=== PATIENT | female | born 1990 | race Caucasian/White ===

== ENCOUNTER 2020-05-20 18:37 | Emergency (ER) | payer MEDICAID ==
[~2020-05-20] VITALS: Ht 160 cm; Wt 49.0 kg
[~2020-05-20 18:37] MED LIST: ACET1TAB12 PO; ALPR1TAB2 PO; CLIN150C8 PO; IBUP-1986 PO; PANT-47 PO
[2020-05-20] MEDS ORDERED: ondansetron/PF 4mg/2ml inj IV ONE (19:05)
[2020-05-20] MEDS ORDERED: ONDA4TAB6 PO ×2 (19:09→20:57)
[2020-05-20] MEDS ORDERED: ondansetron 4mg rapidly disintigrating tab PO ONE (19:10)
[2020-05-20 21:06] LABS: CLARITY,URINE CLEAR (Clear); COLOR,URINE YELLOW (Yellow); GLUCOSE, URINE NEGATIVE (Neg); KETONES,URINE 15 mg/dl (Neg); LEUKOCYTE ESTERASE ,URINE NEGATIVE (Neg); NITRITES, URINE NEGATIVE (Neg); OCCULT BLOOD,URINE TRACE-INTACT (Neg); PROTEIN,URINE TRACE mg/dl (Neg); URINE HCG NEGATIVE (NEG); UROBILINOGEN,URINE 0.2 E.U/dL (0.2-1.0)
[2020-05-20 21:15] LABS: UA COLLECTION TYPE CLN CATCH MIDSTREAM
[2020-05-20 21:16] LABS: BACTERIA,URINE FEW /HPF (Neg); SQUAMOUS EPITHELIAL CELL,UR FEW /LPF (FEW); WBC,URINE NONE SEEN /HPF (0-4)
[2020-05-20 21:21] VITALS: BP 115/81
== END 2020-05-20 21:23 | disposition home or self-care (01) ==
LOC: ER 18:38
DX: K52.89 Other specified noninfective gastroenteritis and colitis (principal); R11.2 Nausea with vomiting, unspecified; R19.7 Diarrhea, unspecified; R10.84 Generalized abdominal pain; Z20.828 Contact with and (suspected) exposure to other viral communicable diseases; F41.9 Anxiety disorder, unspecified; F32.9 Major depressive disorder, single episode, unspecified; Z98.890 Other specified postprocedural states; Z88.6 Allergy status to analgesic agent; Z79.2 Long term (current) use of antibiotics; Z79.899 Other long term (current) drug therapy
CPT/HCPCS: 36415; 81001; 81025; 87635; 99283

== ENCOUNTER 2024-08-10 08:18 | Inpatient (IN) | payer MEDICARE, MEDICAID ==
[~2024-08-10] VITALS: Ht 160 cm; Wt 54.5 kg
[~2024-08-10 08:18] MED LIST changes: +CLIN-214 PO; -CLIN150C8 PO; +ONDA4TAB6 PO
[2024-08-10 09:21] LABS: BASOPHILS % (AUTO) 0.2 % (0-1); EOSINOPHILS # (AUTO) 0.2 X10'3 (0-0.9); EOSINOPHILS % (AUTO) 1.4 % (0-6); LYMPHOCYTES # (AUTO) 0.3 X10'3 (1.1-4.8); MEAN CORPUSCULAR HEMOGLOBIN 21.4 PG (27.0-31.0); MEAN CORPUSCULAR HGB CONC 30.2 g/dL (33.0-36.5); MEAN PLATELET VOLUME 9.6 FL (7.4-10.4); MONOCYTES # (AUTO) 0.5 X10'3 (0-0.9); NEUTROPHILS # (AUTO) 9.9 X10'3 (1.8-7.7); NEUTROPHILS % (AUTO) 90.4 % (42-75); PLATELET COUNT 265 X10'3 (140-440); RED BLOOD COUNT 3.09 X10'6 (4.20-5.60); RED CELL DISTRIBUTION WIDTH 19.6 % (11.5-14.5); WHITE BLOOD COUNT 10.9 X10'3 (4.5-11.0)
[2024-08-10 09:31] LABS: HEMOGLOBIN 6.6 g/dl (12.0-16.0)
[2024-08-10 09:42] LABS: ALANINE AMINOTRANSFERASE 12 U/L (12-78); ALBUMIN 2.3 G/DL (3.4-5.0); ALBUMIN/GLOBULIN RATIO 0.6 (1.1-1.5); ALKALINE PHOSPHATASE 91 IU/L (46-116); ANION GAP 13 (8-16); ASPARTATE AMINO TRANSFERASE 36 U/L (10-37); BILIRUBIN,TOTAL 0.2 MG/DL (0.1-1.0); BLOOD UREA NITROGEN 14 MG/DL (7-18); BUN/CREATININE RATIO 26.4 (10.0-20.0); CALCIUM 8.7 MG/DL (8.5-10.1); CHLORIDE 106 MMOL/L (99-107); CREATININE 0.53 MG/DL (0.40-0.90); GLUCOSE 96 MG/DL (70-104); POTASSIUM 3.2 MMOL/L (3.5-5.1); SODIUM 139 MMOL/L (135-145); TOTAL CARBON DIOXIDE 19.6 MMOL/L (24-32); TOTAL PROTEIN 6.2 G/DL (6.4-8.2); eCRCL 124 ML/MIN; eGFR > 90 ML/MIN
[2024-08-10 09:44] LABS: BILIRUBIN,DIRECT < 0.1 MG/DL (0-0.3)
[2024-08-10] MEDS: CefTRIAXone/D5W-Rocephin 1gm 50 ML IV ONE (09:46)
[2024-08-10] MEDS: normal saline 1000ML IV soln IVB ONE (09:48)
[2024-08-10] MEDS: LidoCAINE 2% Topical Jelly 11mL syringe (UROJET) TOP ONE (10:01)
[2024-08-10 10:10] LABS: ANISOCYTOSIS 2+; HYPOCHROMASIA 2+; MICROCYTOSIS 1+; PLATELET ESTIMATE NORMAL; SCHISTOCYTES FEW; TEAR DROP CELLS FEW
[2024-08-10] MEDS: azithromycin/NS 500mg/250ml 250 ML IV ONE (10:14)
[2024-08-10 10:20] LABS: BILIRUBIN,URINE NEGATIVE (Neg); CLARITY,URINE CLEAR (Clear); COLOR,URINE YELLOW (Yellow); GLUCOSE, URINE NEGATIVE (Neg); KETONES,URINE 15 mg/dl (Neg); LEUKOCYTE ESTERASE ,URINE NEGATIVE (Neg); NITRITES, URINE NEGATIVE (Neg); OCCULT BLOOD,URINE NEGATIVE (Neg); PROTEIN,URINE 30 mg/dl (Neg); UROBILINOGEN,URINE 0.2 E.U/dL (0.2-1.0)
[2024-08-10 10:21] LABS: MAGNESIUM 2.1 MG/DL (1.5-2.4)
[2024-08-10 10:23] LABS: URINE AMPHETAMINE SCREEN NEGATIVE (Neg); URINE BARBITUATE SCREEN NEGATIVE (Neg); URINE BENZODIAZEPINES SCREEN NEGATIVE (Neg); URINE CANNABINOID SCREEN NEGATIVE (Neg); URINE COCAINE SCREEN NEGATIVE (Neg); URINE METHADONE SCREEN NEGATIVE (Neg); URINE OPIATE SCREEN NEGATIVE (Neg); URINE PHENCYCLIDINE SCREEN NEGATIVE (Neg)
[2024-08-10 10:24] LABS: UA COLLECTION TYPE FOLEY CATH
[2024-08-10 10:26] LABS: BACTERIA,URINE NONE SEEN /HPF (Neg); MUCUS STRANDS FEW /LPF (Neg); RBC,URINE NONE SEEN /HPF (0-2); SQUAMOUS EPITHELIAL CELL,UR FEW /LPF (FEW)
[2024-08-10] MEDS ORDERED: mag hydrox/Alum hydrox/simeth 30ml oral suspension PO PRN (10:40)
[2024-08-10] MEDS ORDERED: magnesium hydroxide 30ml (MOM) UD suspension PO PRN (10:40)
[2024-08-10] MEDS ORDERED: magnesium sulf-water 4G/100mL 100 ML IV PRN (10:40)
[2024-08-10] MEDS ORDERED: magnesium sulf-water 2g/50mL 50 ML IV PRN (10:40)
[2024-08-10] MEDS ORDERED: ondansetron/PF 4mg/2ml inj IV PRN (10:40)
[2024-08-10] MEDS ORDERED: potassium Cl 20 mEq SR tablet PO PRN (10:40)
[2024-08-10 11:03] LABS: TOTAL IRON BINDING CAPACITY 255 UG/DL (259-388)
[2024-08-10 11:06] LABS: % IRON SATURATION 2 % (11-46); IRON 4 UG/DL (49-151)
[2024-08-10 11:15] LABS: OCCULT BLOOD STOOL NEGATIVE (Neg)
[2024-08-10] MEDS: LORazepam 2 mg/ml vial IV ONE ×2 (11:30→20:22)
[2024-08-10] MEDS ORDERED: iohexol 300mg/ml 100ml inj. ONE (11:46)
[2024-08-10] MEDS: iron sucrose complex injection 300 MG in normal saline 250ml IV soln 250 ML IV SCH (12:24)
[2024-08-10 12:31] VITALS: BP 101/53; PULSE 127; RESP 20; TEMP 99.3
[2024-08-10 12:43] LABS: HCG SERUM QL NEGATIVE
[2024-08-10 12:45] VITALS: BP 114/61; PULSE 124; RESP 20; TEMP 99.4
[2024-08-10 13:04] VITALS: BP 104/57; PULSE 112; RESP 20; TEMP 99.4
[2024-08-10 14:00] VITALS: BP 101/55; PULSE 108; RESP 20; TEMP 99.4
[2024-08-10 17:18] LABS: HEMATOCRIT 23.9 % (35.0-45.0); HEMOGLOBIN 7.5 g/dl (12.0-16.0); MEAN CORPUSCULAR HEMOGLOBIN 23.1 PG (27.0-31.0); MEAN CORPUSCULAR HGB CONC 31.3 g/dL (33.0-36.5); MEAN CORPUSCULAR VOLUME 73.7 FL (78-98); MEAN PLATELET VOLUME 8.8 FL (7.4-10.4); PLATELET COUNT 248 X10'3 (140-440); RED BLOOD COUNT 3.24 X10'6 (4.20-5.60); RED CELL DISTRIBUTION WIDTH 20.4 % (11.5-14.5); WHITE BLOOD COUNT 9.6 X10'3 (4.5-11.0)
[2024-08-10] MEDS: sodium bicarbonate (8.4%) inj. 50 MEQ in dextrose 5%-water 1,000 ML IV SCH (19:08)
[2024-08-10] MEDS: docusate sod 100mg capsule PO SCH (20:00)
[2024-08-10] MEDS: K and/or MAG REPLACEMENT MC SCH (20:00)
[2024-08-10] MEDS ORDERED: OMEP40CA21 PO (20:02)
[2024-08-10] MEDS ORDERED: BUPR1FIL20 (20:02)
[2024-08-10] MEDS ORDERED: SUCR1TAB PO (20:02)
[2024-08-10] MEDS ORDERED: FAMO40TA86 PO (20:02)
[2024-08-10] MEDS ORDERED: NYST100069 PO (20:02)
[2024-08-10] MEDS ORDERED: ALPR1TAB2 PO (20:05)
[2024-08-10] MEDS ORDERED: PANT-47 PO (20:06)
[2024-08-10] MEDS ORDERED: ONDA-243 PO (20:06)
[2024-08-10] MEDS: potassium Cl 40MEQ/1/2NS 520ml 520 ML IV PRN (21:12)
[2024-08-10 21:20] VITALS: BP 99/50; PULSE 97; RESP 16; TEMP 98; O2SAT 89
[2024-08-11] VITALS (8 sets, daily range): BP systolic 99–192; BP diastolic 47–93; PULSE 85–103; RESP 18–27; TEMP 97.4–98.9; O2SAT 91–99
[2024-08-11] MEDS: CefTRIAXone/D5W-Rocephin 1gm 50 ML IV SCH (07:27)
[2024-08-11] MEDS: nicotine 14mg patch - 24hr TD SCH (08:00)
[2024-08-11] MEDS: azithromycin/NS 500mg/250ml 250 ML IV SCH (08:21)
[2024-08-11 09:12] LABS: BASOPHILS % (AUTO) 0.4 % (0-1); EOSINOPHILS # (AUTO) 0.1 X10'3 (0-0.9); EOSINOPHILS % (AUTO) 2.5 % (0-6); HEMATOCRIT 25.3 % (35.0-45.0); LYMPHOCYTES # (AUTO) 1.1 X10'3 (1.1-4.8); LYMPHOCYTES % (AUTO) 18.9 % (21-51); MEAN CORPUSCULAR HGB CONC 31.5 g/dL (33.0-36.5); MEAN PLATELET VOLUME 8.9 FL (7.4-10.4); MONOCYTES # (AUTO) 0.3 X10'3 (0-0.9); MONOCYTES % (AUTO) 5.2 % (2-12); NEUTROPHILS # (AUTO) 4.2 X10'3 (1.8-7.7); PLATELET COUNT 228 X10'3 (140-440); RED BLOOD COUNT 3.47 X10'6 (4.20-5.60); RED CELL DISTRIBUTION WIDTH 20.4 % (11.5-14.5); WHITE BLOOD COUNT 5.8 X10'3 (4.5-11.0)
[2024-08-11 09:45] LABS: ALANINE AMINOTRANSFERASE 12 U/L (12-78); ALBUMIN 1.9 G/DL (3.4-5.0); ALBUMIN/GLOBULIN RATIO 0.6 (1.1-1.5); ALKALINE PHOSPHATASE 72 IU/L (46-116); ANION GAP 8 (8-16); ASPARTATE AMINO TRANSFERASE 18 U/L (10-37); BILIRUBIN,TOTAL 0.1 MG/DL (0.1-1.0); BLOOD UREA NITROGEN 4 MG/DL (7-18); BUN/CREATININE RATIO 12.9 (10.0-20.0); CALCIUM 7.5 MG/DL (8.5-10.1); CHLORIDE 106 MMOL/L (99-107); CREATININE 0.31 MG/DL (0.40-0.90); GLUCOSE 90 MG/DL (70-104); MAGNESIUM 2.1 MG/DL (1.5-2.4); POTASSIUM 3.3 MMOL/L (3.5-5.1); SODIUM 137 MMOL/L (135-145); TOTAL CARBON DIOXIDE 22.8 MMOL/L (24-32); TOTAL PROTEIN 5.1 G/DL (6.4-8.2); eCRCL 212 ML/MIN; eGFR > 90 ML/MIN
[2024-08-11] MEDS ORDERED: LORazepam 1 MG tablet PO PRN (10:10)
[2024-08-11] MEDS: LORazepam 2 mg/ml vial IV PRN (10:29)
[2024-08-11] MEDS: LORazepam 2 mg/ml vial IV ONE (14:24)
[2024-08-12 05:30] LABS: EOSINOPHILS # (AUTO) 0.1 X10'3 (0-0.9); WHITE BLOOD COUNT 4.8 X10'3 (4.5-11.0)
[2024-08-12 05:32] LABS: HEMATOCRIT 26.8 % (35.0-45.0); HEMOGLOBIN 8.6 g/dl (12.0-16.0); MEAN CORPUSCULAR HEMOGLOBIN 23.2 PG (27.0-31.0); MEAN CORPUSCULAR VOLUME 72.6 FL (78-98); PLATELET COUNT 237 X10'3 (140-440); RED CELL DISTRIBUTION WIDTH 21.1 % (11.5-14.5)
[2024-08-12 05:33] LABS: BASOPHILS % (AUTO) 0.7 % (0-1); EOSINOPHILS % (AUTO) 2.7 % (0-6); LYMPHOCYTES # (AUTO) 1.5 X10'3 (1.1-4.8); LYMPHOCYTES % (AUTO) 31.6 % (21-51); MONOCYTES % (AUTO) 9.8 % (2-12); NEUTROPHILS # (AUTO) 2.7 X10'3 (1.8-7.7); NEUTROPHILS % (AUTO) 55.2 % (42-75)
[2024-08-12 05:52] LABS: ALANINE AMINOTRANSFERASE 10 U/L (12-78); ALBUMIN 1.9 G/DL (3.4-5.0); ALBUMIN/GLOBULIN RATIO 0.6 (1.1-1.5); ALKALINE PHOSPHATASE 73 IU/L (46-116); ANION GAP 5 (8-16); ASPARTATE AMINO TRANSFERASE 12 U/L (10-37); BILIRUBIN,TOTAL 0.1 MG/DL (0.1-1.0); BLOOD UREA NITROGEN 1 MG/DL (7-18); BUN/CREATININE RATIO 2.7 (10.0-20.0); CALCIUM 7.7 MG/DL (8.5-10.1); CHLORIDE 106 MMOL/L (99-107); CREATININE 0.37 MG/DL (0.40-0.90); GLUCOSE 87 MG/DL (70-104); MAGNESIUM 2.1 MG/DL (1.5-2.4); POTASSIUM 3.1 MMOL/L (3.5-5.1); SODIUM 136 MMOL/L (135-145); TOTAL CARBON DIOXIDE 24.7 MMOL/L (24-32); TOTAL PROTEIN 5.1 G/DL (6.4-8.2); eCRCL 177 ML/MIN; eGFR > 90 ML/MIN
[2024-08-12 08:05] LABS: ANISOCYTOSIS 3+; MICROCYTOSIS 1+; PLATELET ESTIMATE NORMAL; TOTAL CELLS COUNTED 100
[2024-08-12 08:06] LABS: LARGE PLATELETS FEW
[2024-08-12 08:07] LABS: HYPOCHROMASIA 2+
[2024-08-12] MEDS: potassium Cl 20 mEq SR tablet PO PRN (09:56)
[2024-08-12] MEDS: acetaminophen 325mg tablet PO PRN (09:57)
[2024-08-12] MEDS ORDERED: AZIT500T9 PO (14:05)
== END 2024-08-12 16:15 | disposition left against medical advice (07) | DRG 871 ==
LOC: ER 08:19 → ED HOLD 10:48 → EDBEDREQ 20:36 → ORTHO 4S 21:27
PROVIDERS: ADMIT Family Medicine; ATTEND Family Medicine
PROC: 30233N1 Transfusion of Nonautologous Red Blood Cells into Peripheral Vein, Percutaneous Approach (ICD-10-PCS; principal; 2024-08-10)
DX: A41.9 Sepsis, unspecified organism (principal); G93.41 Metabolic encephalopathy; J15.9 Unspecified bacterial pneumonia; F17.210 Nicotine dependence, cigarettes, uncomplicated; Z20.822 Contact with and (suspected) exposure to COVID-19; D50.9 Iron deficiency anemia, unspecified; F32.A Depression, unspecified; F41.9 Anxiety disorder, unspecified; E87.6 Hypokalemia; Z88.8 Allergy status to other drugs, medicaments and biological substances; Z87.11 Personal history of peptic ulcer disease; Z98.891 History of uterine scar from previous surgery
CPT/HCPCS: 36415; 36430; 71045; 74177; 80048; 80053; 80076; 80305; 80320; 81001; 82272; 82948; 83540; 83550; 83605; 83735; 84145; 84703; 85007; 85008; 85025; 85027; 86885; 86900; 86901; 86920; 87040; 87081; 87088; 87502; 87503; 87811; 93005; 96365; 96367; 97161; 97530; 99285; A4314; A4615; A4620; A5200; G0378; J0456; J0696; J1756; J2060; J3480; J3490; J7030; J7040; J7050; J7070; P9016; Q9967